=== PATIENT | female | born 1970 | race Caucasian/White ===

== ENCOUNTER 2020-04-19 07:26 | Outpatient (REF) | payer OTHER, SELFPAY | END 2020-04-19 07:27 | disposition home or self-care (01) | LOC: HO.LAB 07:26 | PROVIDERS: Visit Provider Internal Medicine | DX: Z20.828 Contact with and (suspected) exposure to other viral communicable diseases (principal) | CPT/HCPCS: C9803; U0003 ==

== ENCOUNTER 2025-05-05 09:46 | Outpatient (AMB) | payer OTHER, SELFPAY ==
--- NOTE | 2025-05-05 10:02 | A.OFFPC_ITS ---
Vital Signs 05/05/25 10:04 Height 5 ft 0.75 in Weight 139 lb 8 oz BMI 26.6 BP 122/84 Blood Pressure Location Lt brachial Position Sitting Respiration 16 Pulse 63 Pulse Source Pulse Oximeter Temp 97.1 F Temp Source Temporal Artery Scan Pulse Oximetry (%) 97 Oxygen Delivery Method Room Air Intake Visit Reasons: Annual Pe Second Grade Teacher Required: No Accompanied by: Self / Same As Patient Allergies lisinopril Adverse Reaction (Intermediate, Verified 05/05/25 10:02) Cough nitrofurantoin (From Macrobid) Adverse Reaction (Intermediate, Verified 05/05/25 10:02) Rash scopolamine Adverse Reaction (Intermediate, Verified 05/05/25 10:32) double vision spironolactone Adverse Reaction (Intermediate, Verified 05/05/25 10:02) severe headache sumatriptan Adverse Reaction (Intermediate, Verified 05/05/25 10:02) Drowsy Medication List - Last Reconciled 05/05/25 by Janett Howard MD amlodipine 2.5 mg PO DAILY anastrozole 1 mg PO DAILY ascorbate calcium (vitamin C) 500 mg PO DAILY qtvidylepr-pxktfevehvwns-ejld 50-300-40 mg 2 caps PO TID PRN cholecalciferol (vitamin D3) 25 mcg PO DAILY clindamycin phosphate 1% topical cyclobenzaprine 5 mg PO TID PRN Tobacco use date assessed: 05/05/25 Dental Screening Dental Screen Date: 05/05/25 Did you have a dental visit in the last 12 months?: Yes Did you have a dental problem in the last 6 months where you did not have access to dental care?: No Was dental information given to patient?: Patient has dentist HPI HPI Comments History of Present Illness Details The patient is a 54 year old female presenting to -[facility] and for a physical. Left lower quadrant abdominal pain: The patient reports a persistent pressure in her left lower abdomen, which was previously evaluated by her hot stick worker with an internal ultrasound that showed only small fibroids. This symptom has been present for less than a year. More recently, on Sunday, she experienced a sudden, severe, sharp pain in her left lower back radiating to the left lower abdomen, which has persisted. She denies any burning with urination or changes in urine appearance. She also denies any diarrhea or changes in stool. Her last colonoscopy was in 2020. Hypertension: The patient takes amlodipine 2.5 mg for hypertension. She was previously taking two pills but reduced her dose to one pill because it was making her feel wonky. She reports her blood pressure is well-controlled on the single low dose. Pneumonia: The patient developed pneumonia in November after a trip to [place]. She was treated with antibiotics and it took a couple of weeks to recover. Her breathing has been good since recovery. She denies any associated gastrointestinal symptoms like diarrhea. Breast cancer: The patient takes anastrozole. She was undergoing surveillance with breast MRIs, but her insurance will no longer cover them unless something abnormal is seen on other imaging. She now relies solely on mammograms for screening. Goes to [facility] and [facility]. Osteopenia: The patient is receiving Zometa infusions due to weakness found on her last bone density scan. She experienced flu-like symptoms for two to three days after her first infusion. Her next infusion is scheduled for July 07. Migraine headache: The patient has a history of migraines and had a brain MRI in October that was unremarkable. She uses butalbital-caffeine (Fioricet) as needed for her headaches, having last used one dose three days ago. Left cervical lymphadenopathy: The patient has noticed a tender lymph node in her left neck for a couple of months, which appeared after her pneumonia in November. She states that it was previously enlarged but then decreased in size on its own, though she can still feel it. Gastroesophageal reflux disease: The patient reports increased acid reflux symptoms, which are worse if she eats after 8 p.m. or consumes red sauces. The associated discomfort is located in the mid-chest area. [facility] Medical History (Updated 05/05/25 @ 18:08 by Janett Howard MD) Hematuria Cervical lymphadenopathy LLQ pain Routine adult health maintenance Primary hypertension Reactive airway disease Osteopenia Migraines Generalized anxiety disorder DCIS (ductal carcinoma in situ) Breast cancer Surgical History (Updated 05/05/25 @ 09:29 by Janett Howard MD) H/O breast surgery H/O hand surgery History of colonoscopy (~11/01/20) Family History (Updated 05/05/25 @ 10:04 by Billie Crocker CMA) Other Coronary artery disease Diabetes mellitus type 2, uncomplicated Prostate cancer Stroke Social History Housing: House Patient Tobacco Use Status: Never used Tobacco e-Cigarette/Vaping Use: Never Used Current occupational status: retired Questionnaire PHQ-9 Over the last 2 weeks, how often have you been bothered by any of the following problems? 1. Little interest or pleasure in doing things: not at all 2. Feeling down, depressed, or hopeless: not at all 3. Trouble falling or staying asleep, or sleeping too much: several days 4. Feeling tired or having little energy: not at all 5. Poor appetite or overeating: not at all 6. Feeling bad about yourself - or that you are a failure or have let yourself or your family down: not at all 7. Trouble concentrating on things, such as reading the newspaper or watching television: not at all 8. Moving or speaking so slowly that other people could have noticed. Or the opposite - being so fidgety or restless that you have been moving around a lot more than usual: not at all 9. Thoughts that you would be better off or of hurting yourself in some wa y: not at all Total score: 1 Depression Screening Interpretation: Negative Depression Screening Done: Yes 58390 - PHQ-9 Billing: Yes Source: Developed by Drs. Shay Treadwell, Tai Guerrero, Tae Davenport and colleagues, with an educational madelyn from [employer]. Thrive Questionnaire Date Thrive assessed: 05/05/25 I am a: Patient What is your living situation today?: I have a steady place to live Within the past 12 months, did the food you bought not last and you didn't have the money to get more?: Never true Within the past 12 months, did you worry whether your food would run out before you got money to buy more?: Never true Do you have trouble paying for medicines?: No Do you have trouble getting transportation to medical appointments?: No Do you have trouble paying your heating and electricity bill?: No Do you have trouble taking care of your child, family member or friend?: No Do you have trouble with day-to-day activities such as bathing, preparing meals, shopping, managing finances, etc.?: No Are you currently unemployed and looking for a job?: No Are you interested in more education?: No Please select the resources that you would like help with: None Currently or been in a relationship where the following occur: I choose not to answer THRIVE Score: 0 AUDIT C Alcohol Use Questionnaire (AUDIT-C) 1. How often do you have a drink containing alcohol?: Monthly or less 2. How many drinks containing alcohol do you have on a typical day when you are drinking?: 1 or 2 3. How often do you have six or more drinks on one occasion?: Never Total Score: 1 PATRIC-7 AMB Questionnaire PATRIC-7 Date PATRIC - 7 assessed: 05/05/25 Feeling nervous, anxious, or on edge: 0 = Not at all Not being able to stop or control worryin = Not at all Worrying too much about different things: 0 = Not at all Trouble relaxin = Not at all Being so restless that it is hard to sit still: 0 = Not at all Becoming easily annoyed or irritable: 0 = Not at all Feeling afraid as if something awful might happen: 0 = Not at all Total PATRIC-7 score (0-4 normal; 5-9 mild; 10-14 moderate; 15-21 severe): 0 Source: Developed by Drs. Shay Treadwell, Tia Guerrero, Tae Davenport and colleagues, with an educational madelyn from [employer]. Review of Systems Narrative Review of Systems - Constitutional: Denies fever - Respiratory: per hpi - Cardiovascular: Denies chest pain. - Gastrointestinal: per hpi - Genitourinary: Denies burning with urination or changes in urine color. - Musculoskeletal: Reports decreased strength in her hands post-surgery, which affects her ability to lift weights. - Neurological: per hpi - Psychiatric: Reports manageable stress - Lymphatic: per hpi Physical exam (Primary Care) Vital Signs: Last Vital Signs Temp 97.1 F 05/05/25 10:04 Pulse 63 05/05/25 10:04 Resp 16 05/05/25 10:04 BP 122/84 05/05/25 10:04 Pulse Ox 97 05/05/25 10:04 Oxygen Delivery Method Room Air 05/05/25 10:04 BMI result Body Mass Index 26.6 Tobacco/Smoking Status: Tobacco use Status Tobacco use date assessed 05/05/25 05/05/25 10:11 Patient Tobacco Use Status Never used Tobacco 05/05/25 10:11 e-Cigarette/Vaping Use Never Used 05/05/25 10:11 PHQ-9: PHQ-9 Score PHQ-9: Total score 1 05/05/25 10:54 Depression Screening Interpretation: Negative Thrive Assessment: Date of Thrive Assessment Date Thrive assessed 05/05/25 05/05/25 10:11 Currently or been in a relationship where the following occur: I choose not to answer Narrative Physical Exam - Constitutional: Patient appears well. - Eyes: No abnormalities noted. - Ears: External auditory canals are clear bilaterally with no cerumen impaction. - Mouth/Throat: Oropharynx is clear. - Neck: A tender lymph node was palpated in the left cervical chain. - Cardiovascular: Regular rate and rhythm with a soft murmur noted. - Lungs: Clear to auscultation bilaterally with no wheezing. - Abdomen: Bowel sounds are present. Tenderness to palpation in the left lower quadrant. - Extremities: No edema in the legs. Coding Level of Care Code Est Pt Prev Care 40-64y(42945) Add On Preventative Visit Only Diagnoses Routine adult health maintenance Z00.00 LLQ pain R10.32 Malignant neoplasm of right female breast, unspecified estrogen receptor status, unspecified site of breast C50.911 Breast location: unspecified site of breast Estrogen receptor status: unspecified Patient sex: female Laterality: right Additional Codes PHQ-9 - 37043 - PHQ-9 Billing: Yes ([id number]) Assessment & Plan Assessment & Plan (1) Routine adult health maintenance: Code(s): Z00.00 - Encounter for general adult medical examination without abnormal findings Category: Medical (2) LLQ pain: Code(s): R10.32 - Left lower quadrant pain Category: Medical (3) Breast cancer: Code(s): C50.919 - Malignant neoplasm of unspecified site of unspecified female breast Category: Medical Qualifiers: Breast location: unspecified site of breast Estrogen receptor status: unspecified Patient sex: female Laterality: right Qualified Code(s): C50.911 - Malignant neoplasm of unspecified site of right female breast Plan Assessment and Plan 1. Left lower quadrant abdominal pain - The patient reports both a chronic pressure and a recent acute, sharp pain. - The differential diagnosis includes gastrointestinal etiologies such as diverticulitis, irritable bowel syndrome, or other pathology, as well as gynecological or renal causes due to associated flank pain. - A CT scan of the abdomen and pelvis with contrast will be ordered to investigate further. - Based on the CT results, a referral to gastroenterology for a colonoscopy may be considered. - In the interim, she is advised to use a heating pad for comfort. - Lab work, including a urinalysis, will be performed. Nephrolithiasis also on differential. 2. Gastroesophageal reflux disease - Symptoms are triggered by certain foods and eating late. - She will be prescribed famotidine (Pepcid) 20 mg to be taken before dinner for a few weeks. - The potential need for an endoscopy will be considered, possibly in conjunction with a colonoscopy, depending on the gastroenterology evaluation. 3. Left cervical lymphadenopathy - A tender lymph node has been present for several months following pneumonia. - A neck ultrasound will be ordered to establish a baseline and evaluate the node 4. Hypertension - The patient's blood pressure is apparently well-controlled on a self-reduced dose of amlodipine 2.5 mg daily. - Will continue current dosing and re-evaluate in six months, with the possibility of discontinuing the medication if her blood pressure remains stable. - A refill will be sent to the pharmacy. 5. Health Maintenance - The patient will undergo comprehensive lab work today, including CBC, chemistry panel, A1c, iron profile, cholesterol, B12, vitamin D, and thyroid function tests. - A follow-up appointment is scheduled in three months 6. Breast cancer - She continues on anastrozole. 7. Migraine headache - The patient uses Fioricet as needed. - No changes to her current regimen were made. 8. Osteopenia - She is undergoing treatment with Zometa infusions, with the next one scheduled. - She is advised to hydrate well before the infusion to mitigate side effects. Plan - Order a CT scan of the abdomen and pelvis with contrast to evaluate the left lower quadrant pain. - Order a neck ultrasound to evaluate the persistent left cervical lymphadenopathy. - Order comprehensive lab work today, including blood counts, diabetes screen, iron profile, cholesterol, B12, vitamin D, and thyroid tests. - Order a urinalysis to check for a UTI and urine microalbumin to check for protein. - Prescribe famotidine 20 mg to be taken before dinner for several weeks to manage acid reflux symptoms. - Recommend a trial of an dysc-hzj-qfvndfb probiotic to see if it improves gastrointestinal symptoms. - Plan for a referral to gastroenterology for a colonoscopy and possible endoscopy based on the results of the CT scan. - Continue current medications, including amlodipine 2.5 mg daily, with a plan to re-evaluate the need for it in the future. - Advise the patient to use a heating pad on her abdomen for pain relief. Patient Instructions - Go to the lab today to have your blood drawn and to provide a urine sample. - You will receive a call to schedule a CT scan of your abdomen and a neck ultrasound. Please complete these tests as scheduled. - A prescription for famotidine (Pepcid) 20 mg has been sent to your pharmacy. T mamie one tablet before your evening meal for the next few weeks to help with your acid reflux. - You can use a heating pad on your lower abdomen to help with the pain and pressure. - Consider trying an snsu-xrx-dceobbx probiotic for a few weeks to see if it helps your stomach symptoms. - Continue taking your current medications as you have been, including one amlodipine pill per day. Orders: Orders Microalbumin, Random (w Creat) Today C50.919 - Malignant neoplasm of unspecified site of unspecified female breast, E55.9 - Vitamin D deficiency, unspecified, I10 - Essential (primary) hypertension, M85.80 - Other specified disorders of bone density and structure, unspecified site, Z00.00 - Encounter for general adult medical examination without abnormal findings UA and rflx microscopic Today C50.919 - Malignant neoplasm of unspecified site of unspecified female breast, E55.9 - Vitamin D deficiency, unspecified, I10 - Essential (primary) hypertension, M85.80 - Other specified disorders of bone density and structure, unspecified site, Z00.00 - Encounter for general adult medical examination without abnormal findings Complete Blood Count Auto Diff Today C50.919 - Malignant neoplasm of unspecified site of unspecified female breast, E55.9 - Vitamin D deficiency, unspecified, I10 - Essential (primary) hypertension, M85.80 - Other specified disorders of bone density and structure, unspecified site, Z00.00 - Encounter for general adult medical examination without abnormal findings Hemoglobin A1c Today C50.919 - Malignant neoplasm of unspecified site of unspecified female breast, E55.9 - Vitamin D deficiency, unspecified, I10 - Essential (primary) hypertension, M85.80 - Other specified disorders of bone density and structure, unspecified site, Z00.00 - Encounter for general adult medical examination without abnormal findings TSH reflex Free T4 Today C50.919 - Malignant neoplasm of unspecified site of unspecified female breast, E55.9 - Vitamin D deficiency, unspecified, I10 - Essential (primary) hypertension, M85.80 - Other specified disorders of bone density and structure, unspecified site, Z00.00 - Encounter for general adult medical examination without abnormal findings Vitamin B12 Today C50.919 - Malignant neoplasm of unspecified site of unspecified female breast, E55.9 - Vitamin D deficiency, unspecified, I10 - Essential (primary) hypertension, M85.80 - Other specified disorders of bone density and structure, unspecified site, Z00.00 - Encounter for general adult medical examination without abnormal findings Comprehensive Met. Panel Today C50.919 - Malignant neoplasm of unspecified site of unspecified female breast, E55.9 - Vitamin D deficiency, unspecified, I10 - Essential (primary) hypertension, M85.80 - Other specified disorders of bone density and structure, unspecified site, Z00.00 - Encounter for general adult medical examination without abnormal findings IRON PROFILE Today C50.919 - Malignant neoplasm of unspecified site of unspecified female breast, E55.9 - Vitamin D deficiency, unspecified, I10 - Essential (primary) hypertension, M85.80 - Other specified disorders of bone density and structure, unspecified site, Z00.00 - Encounter for general adult medical examination without abnormal findings Lipid Panel Today C50.919 - Malignant neoplasm of unspecified site of unspecified female breast, E55.9 - Vitamin D deficiency, unspecified, I10 - Essential (primary) hypertension, M85.80 - Other specified disorders of bone density and structure, unspecified site, Z00.00 - Encounter for general adult medical examination without abnormal findings Vitamin D 25-OH Total Today C50.919 - Malignant neoplasm of unspecified site of unspecified female breast, E55.9 - Vitamin D deficiency, unspecified, I10 - Essential (primary) hypertension, M85.80 - Other specified disorders of bone density and structure, unspecified site, Z00.00 - Encounter for general adult medical examination without abnormal findings Ferritin Today C50.919 - Malignant neoplasm of unspecified site of unspecified female breast, E55.9 - Vitamin D deficiency, unspecified, I10 - Essential (primary) hypertension, M85.80 - Other specified disorders of bone density and structure, unspecified site, Z00.00 - Encounter for general adult medical examination without abnormal findings CT abdomen pelvis w IV con Today R10.32 - Left lower quadrant pain US soft tiss head and/or neck Today R59.0 - Localized enlarged lymph nodes Medications: New famotidine 20 mg PO BEDTIME 30 tabs 0RF Lactobacillus acidophilus 1,000 mmu cells PO DAILY 30 caps 0RF
[2025-05-05 10:04] VITALS: BP 122/84; PULSE 63; RESP 16; TEMP 36.2; O2SAT 97; BMI 26.6
--- OUTSIDE RECORDS SUMMARY | 2025-05-05 11:40 | XMS_ITS | Clinical Summary ---
Author Organization [facility] Address [address] [place], [place] [id number] Phone Care Team Providers Care Paving Inspector Name Role Phone Janett Howard MD Primary Care Provider + Social History Tobacco Use Types Packs/Day Years Used Date Smoking Tobacco: Never Assessed Education Answer Date Recorded Are you interested in more education? Not on maya e 09/16/2022 Are you concerned about learning? Not on file 09/16/2022 No 09/16/2022 No 09/16/2022 Digital Access Answer Date Recorded No 10/17/2022 No 10/17/2022 Reliable internet access at home? Not on file 10/17/2022 Device with a working camera? Not on file Comments Unknown Sex and Gender Information Value Date Recorded Sex Assigned at Not on file Legal Sex Female 1:30 PM EST Gender Identity Not on file Sexual Orientation Not on file Plan of Treatment Not on file Medical Devices Not on file [place] [address] [place] [address] [place] [address] [place] [address] NAVIGATOR POS [place] [address] [place] [address] [address] [place] [address] [place] [address] [place] [address] NAVIGATOR POS Care Teams Paving Inspector Relationship Specialty Start Date End Date Janett Howard MD PCP - General 05/08/22 Additional Source Comments The information contained in this document represents components of the legal health record. It is not the complete legal health record.[facility]
== END 2025-05-05 11:06 | disposition home or self-care (01) ==
LOC: HO.HMCHD 09:47
PROVIDERS: Visit Provider Internal Medicine
DX: Z00.00 Encounter for general adult medical examination without abnormal findings (principal); R10.32 Left lower quadrant pain; C50.911 Malignant neoplasm of unspecified site of right female breast

== ENCOUNTER 2025-05-05 09:46 | Outpatient (REF) | payer OTHER, SELFPAY ==
[2025-05-05 13:48] LABS: Appearance Urine Clear; Glucose Urine UA Negative (Negative); PH 7.5 (5.0-9.0); Specific Gravity - Urine 1.020 (1.005-1.025); UMIC TRIGGER UA YES
[2025-05-05 14:20] LABS: Microalbum/Creatinine Ratio Ur 6.2 ug/mg cr (<30)
[2025-05-05 14:36] LABS: MANUAL DIFF FLAG NO
[2025-05-05 14:47] LABS: Hematocrit 40.6 % (37.0-47.0); Hemoglobin 13.9 g/dl (12.0-16.0); Imm Gran Abs Auto 0.00 X10*3/uL (0.00-0.03); Imm Gran Pct Auto 0.0 % (0.0-0.4); Lymphocytes Absolute Auto 1.3 X10*3/uL (1.2-4.9); Mean Corpuscular HGB Conc 34.2 g/dl (31.0-35.0); Mean Corpuscular Hemoglobin 29.8 pg (27.0-33.0); Mean Corpuscular Volume 86.9 fL (80.0-98.0); NRBC Abs Auto 0.000 X10*3/uL (0.0-0.012); NRBC Pct Auto 0.0 /100WBC (0.0-0.2); Platelet Count 306 X10*3/uL (160-400); Red Blood Count 4.67 X10*6/uL (4.20-5.50); White Blood Count 4.3 X10*3/uL (4.8-10.8)
[2025-05-05 15:53] LABS: Alanine Aminotransferase 20 U/L (0-31); Albumin Level 4.6 g/dL (3.5-5.0); Alkaline Phosphatase 68 U/L (39-117); Anion Gap 9 (12-20); Aspartate Amino Transferase 25 U/L (5-31); Blood Urea Nitrogen 12 mg/dL (9-16); Calcium 9.3 mg/dL (8.4-10.2); Carbon Dioxide 30 mmol/L (22-29); Chloride 107 mmol/L (96-108); Cholesterol 193 mg/dL (<200); Estimated Glomerular Filt Rate > 60; HDL Cholesterol 49 mg/dL (>40); Iron 116 mcg/dL (30-160); Percent Iron Saturation 36 % (15-50); Potassium 3.8 mmol/L (3.3-5.1); Sodium 142 mmol/L (135-145); Total Iron Binding Capacity 321 mcg/dL (228-428); Total Protein 7.3 g/dL (6.5-8.0); Triglycerides 79 mg/dL (<150); Unsaturated Iron Binding 205 ug/dL
[2025-05-05 16:21] LABS: Vitamin B12 664 pg/mL (200-900)
[2025-05-05 16:32] LABS: Ferritin 68 ng/mL (10-250)
== END 2025-05-05 09:47 | disposition home or self-care (01) ==
LOC: HO.HKASLDS 09:46
PROVIDERS: PCP Internal Medicine; Visit Provider Internal Medicine
DX: Z00.00 Encounter for general adult medical examination without abnormal findings (principal); M85.80 Other specified disorders of bone density and structure, unspecified site; I10 Essential (primary) hypertension; E55.9 Vitamin D deficiency, unspecified; R31.9 Hematuria, unspecified; C50.911 Malignant neoplasm of unspecified site of right female breast; Z79.811 Long term (current) use of aromatase inhibitors
CPT/HCPCS: 36415; 80053; 80061; 81001; 82043; 82306; 82570; 82607; 82728; 83036; 83540; 84443; 85025; 87086; 96127